=== PATIENT | female | born 1940 | race African-American/Black ===

== ENCOUNTER 2019-12-08 16:32 | Inpatient (IN) | payer MEDICARE, MEDICAID ==
[~2019-12-08] VITALS: Ht 167.6 cm; Wt 51.7 kg
[~2019-12-08 16:32] MED LIST: BRIM15DR2 EACHEYE; CELE400C PO; ERGO400C PO; PROAIR INHALER IH; SIMV-43 PO; TRAV2.5D EACHEYE
[2019-12-08 22:03] LABS: HEMATOCRIT. 45.6 % (36.0-48.0); HEMOGLOBIN. 15.2 g/dL (12.0-16.0); MEAN CORPUSCULAR HEMOGLOBIN 30.7 pg (28.0-32.0); MEAN CORPUSCULAR VOLUME 91.9 fL (81.0-99.0); MEAN PLATELET VOLUME 9.7 fl (7.4-10.4); PLATELET 206 x1000/uL (130-400); RED BLOOD CELL COUNT 4.96 mill/uL (4.2-5.4); RED CELL DISTRIBUTION WIDTH 13.5 % (11.6-14.6)
[2019-12-08 22:10] LABS: CHLORIDE 95 mEq/L (98-107)
[2019-12-08 22:53] LABS: CLARITY URINE CLEAR (CLEAR); COLOR URINE DARK YELLOW (YELLOW); KETONES URINE TRACE (NEGATIVE); LEUKOCYTE ESTERASE URINE TRACE (NEGATIVE); NITRITE URINE NEGATIVE (NEGATIVE); OCCULT BLOOD URINE NEGATIVE (NEGATIVE); PROTEIN URINE 1+ (NEGATIVE); SPECIFIC GRAVITY URINE 1.026 (1.005-1.030)
[2019-12-08 22:59] LABS: PLATELET ESTIMATE NORMAL
[2019-12-08] MEDS ORDERED: SODIUM CHLORIDE 0.9% 1,000 ML IV ONE (23:15)
[2019-12-08] MEDS ORDERED: CEFTRIAXONE 1 G PREMIX 50 ML IV ONE (23:15)
[2019-12-09 05:23] LABS: HEMATOCRIT. 42.8 % (36.0-48.0); HEMOGLOBIN. 14.5 g/dL (12.0-16.0); MEAN CORPUSCULAR HEMOGLOBIN 31.3 pg (28.0-32.0); MEAN PLATELET VOLUME 9.7 fl (7.4-10.4); PLATELET 167 x1000/uL (130-400); RED BLOOD CELL COUNT 4.65 mill/uL (4.2-5.4); RED CELL DISTRIBUTION WIDTH 13.2 % (11.6-14.6)
[2019-12-09 05:26] LABS: CHLORIDE 102 mEq/L (98-107)
[2019-12-09 07:08] LABS: PLATELET ESTIMATE NORMAL
[2019-12-09 08:53] LABS: T4 FREE 1.18 ng/dL (0.76-1.46)
[2019-12-09 11:14] VITALS: BP 110/63
[2019-12-09 12:00] VITALS: BP 135/82
[2019-12-09] MEDS ORDERED: CEFTRIAXONE 1 G PREMIX 50 ML IV SCH (14:00)
[2019-12-09] MEDS ORDERED: ONDANSETRON HCL 4MG/2ML INJ IV PRN (14:00)
[2019-12-09 16:00] VITALS: BP 105/60
[2019-12-09] MEDS: ACETAMINOPHEN 325MG TABLET PO PRN (18:13)
[2019-12-09] MEDS: AZITHROMYCIN 500MG in DEXTROSE 5% WATER 250ML IV SCH (18:32)
[2019-12-09] MEDS ORDERED: P-EP-312 PO (18:58)
[2019-12-09 20:00] VITALS: BP 96/46
[2019-12-09] MEDS: ATORVASTATIN CALCIUM 20MG TABLET PO SCH (21:29)
[2019-12-09] MEDS: CEFTRIAXONE 1 G PREMIX 50 ML IV SCH (21:29)
[2019-12-09] MEDS: DOCUSATE SODIUM 250MG CAPSULE PO SCH (21:29)
[2019-12-10] VITALS: BP 106/70
[2019-12-10] MEDS: IPRATROPIUM/ALBUTEROL 0.5-3(2.5)MG/3ML NEB HHN SCH ×6 (01:14→21:20)
[2019-12-10 04:00] VITALS: BP 122/82
[2019-12-10] MEDS: ACETAMINOPHEN 325MG TABLET PO PRN (06:39)
[2019-12-10] MEDS: LEVOTHYROXINE SODIUM 75MCG TABLET PO SCH (06:39)
[2019-12-10 07:16] LABS: HEMATOCRIT. 39.3 % (36.0-48.0); HEMOGLOBIN. 13.2 g/dL (12.0-16.0); MEAN CORPUSCULAR HEMOGLOBIN 30.8 pg (28.0-32.0); MEAN CORPUSCULAR VOLUME 91.8 fL (81.0-99.0); PLATELET 169 x1000/uL (130-400); RED BLOOD CELL COUNT 4.28 mill/uL (4.2-5.4)
[2019-12-10 07:27] LABS: BETA HYDROXYBUTYRATE < 0.1 mMol/L (0.0-0.3)
[2019-12-10 08:00] VITALS: BP 84/50
[2019-12-10] MEDS: PANTOPRAZOLE SODIUM 40 MG/VIAL IV SCH (08:38)
[2019-12-10] MEDS ORDERED: LEVOFLOXACIN 500MG TABLET PO SCH (11:00)
[2019-12-10 12:00] VITALS: BP 100/67
[2019-12-10] MEDS: AZITHROMYCIN 500MG in DEXTROSE 5% WATER 250ML IV SCH (15:48)
[2019-12-10 16:00] VITALS: BP 97/70
[2019-12-10 20:00] VITALS: BP 113/77
[2019-12-10] MEDS: CEFTRIAXONE 1 G PREMIX 50 ML IV SCH (20:53)
[2019-12-10] MEDS: ATORVASTATIN CALCIUM 20MG TABLET PO SCH (20:53)
[2019-12-10] MEDS: DOCUSATE SODIUM 250MG CAPSULE PO SCH (20:53)
[2019-12-10 22:35] LABS: PLATELET ESTIMATE NORMAL
[2019-12-11] VITALS: BP 119/79
[2019-12-11] MEDS: ACETAMINOPHEN 325MG TABLET PO PRN (01:09)
[2019-12-11] MEDS: IPRATROPIUM/ALBUTEROL 0.5-3(2.5)MG/3ML NEB HHN SCH ×6 (01:26→16:00)
[2019-12-11 04:00] VITALS: BP 102/66
[2019-12-11] MEDS: LEVOTHYROXINE SODIUM 75MCG TABLET PO SCH (06:21)
[2019-12-11 06:42] LABS: BASOPHILS % 0.7 % (0.0-2.0); EOSINOPHILS % 3.5 % (0.0-5.0); HEMATOCRIT. 38.4 % (36.0-48.0); LYMPHOCYTES % 8.3 % (20.0-50.0); MEAN CORPUSCULAR HEMOGLOBIN 30.7 pg (28.0-32.0); MEAN CORPUSCULAR VOLUME 90.7 fL (81.0-99.0); MEAN PLATELET VOLUME 9.8 fl (7.4-10.4); MONOCYTES % 12.4 % (2.0-8.0); NEUTROPHILS % 75.1 % (40.0-76.0); PLATELET 183 x1000/uL (130-400); RED BLOOD CELL COUNT 4.23 mill/uL (4.2-5.4)
[2019-12-11 06:47] LABS: CHLORIDE 103 mEq/L (98-107)
[2019-12-11 08:00] VITALS: BP 101/74
[2019-12-11] MEDS: PANTOPRAZOLE SODIUM 40 MG/VIAL IV SCH (08:09)
[2019-12-11 12:00] VITALS: BP 110/84
[2019-12-11] MEDS: PROMETHAZINE/DEXTROMETHORPHAN 6.25-15MG/5ML BOTTLE 120ML PO PRN ×2 (13:47→20:33)
[2019-12-11] MEDS: BRIMONIDINE 0.2% OPHTH DROPS 5ML BOTHEYE SCH ×2 (13:48→20:09)
[2019-12-11 16:00] VITALS: BP 91/58
[2019-12-11] MEDS: AZITHROMYCIN 500MG in DEXTROSE 5% WATER 250ML IV SCH (16:22)
[2019-12-11] MEDS ORDERED: LATANOPROST 0.005% OPHTH DROPS 2.5ML EACHEYE SCH (17:00)
[2019-12-11] MEDS ORDERED: NON FORMULARY PATIENT HOME MED OP SCH (17:00)
[2019-12-11 20:00] VITALS: BP_SYST 112; BP_SYST 115; BP_DIAS 63; BP_DIAS 74
[2019-12-11] MEDS: CEFTRIAXONE 1 G PREMIX 50 ML IV SCH (20:07)
[2019-12-11] MEDS: ATORVASTATIN CALCIUM 20MG TABLET PO SCH (20:07)
[2019-12-11] MEDS: DOCUSATE SODIUM 250MG CAPSULE PO SCH (20:07)
[2019-12-12] VITALS: BP 109/71
[2019-12-12 04:00] VITALS: BP 121/79
[2019-12-12] MEDS: PROMETHAZINE/DEXTROMETHORPHAN 6.25-15MG/5ML BOTTLE 120ML PO PRN ×2 (04:09→12:25)
[2019-12-12] MEDS: BRIMONIDINE 0.2% OPHTH DROPS 5ML BOTHEYE SCH ×2 (05:35→13:24)
[2019-12-12] MEDS: LEVOTHYROXINE SODIUM 75MCG TABLET PO SCH (06:37)
[2019-12-12 07:27] LABS: HEMATOCRIT. 40.7 % (36.0-48.0); HEMOGLOBIN. 13.7 g/dL (12.0-16.0); MEAN CORPUSCULAR HEMOGLOBIN 30.8 pg (28.0-32.0); MEAN CORPUSCULAR VOLUME 91.6 fL (81.0-99.0); MEAN PLATELET VOLUME 9.8 fl (7.4-10.4); PLATELET 218 x1000/uL (130-400); RED BLOOD CELL COUNT 4.45 mill/uL (4.2-5.4); RED CELL DISTRIBUTION WIDTH 13.4 % (11.6-14.6)
[2019-12-12 08:00] VITALS: BP 106/66
[2019-12-12 08:35] LABS: CHLORIDE 103 mEq/L (98-107)
[2019-12-12] MEDS ORDERED: AZITHROMYCIN 500 MG TABLET PO SCH (09:00)
[2019-12-12] MEDS ORDERED: FAMOTIDINE 20MG TABLET PO SCH (09:00)
[2019-12-12 11:10] VITALS: BP 106/66
[2019-12-12 11:47] LABS: PLATELET ESTIMATE NORMAL
[2019-12-12 12:14] VITALS: BP 108/58
[2019-12-12] MEDS: IPRATROPIUM/ALBUTEROL 0.5-3(2.5)MG/3ML NEB HHN SCH (14:20)
== END 2019-12-12 15:20 | disposition home or self-care (01) | DRG 871 ==
LOC: ER 16:32 → 6EST 23:20 → ENRESERV 12-09 09:48 → 6EST 12-09 17:03
PROVIDERS: ADMIT Internal Medicine; ATTEND Internal Medicine
DX: A41.9 Sepsis, unspecified organism (principal); J96.20 Acute and chronic respiratory failure, unspecified whether with hypoxia or hypercapnia; J44.1 Chronic obstructive pulmonary disease with (acute) exacerbation; E44.1 Mild protein-calorie malnutrition; E87.1 Hypo-osmolality and hyponatremia; Z68.1 Body mass index [BMI] 19.9 or less, adult; N39.0 Urinary tract infection, site not specified; I12.9 Hypertensive chronic kidney disease with stage 1 through stage 4 chronic kidney disease, or unspecified chronic kidney disease; E03.9 Hypothyroidism, unspecified; E87.5 Hyperkalemia; R74.0 Nonspecific elevation of levels of transaminase and lactic acid dehydrogenase [LDH]; N18.1 Chronic kidney disease, stage 1; F32.9 Major depressive disorder, single episode, unspecified; M17.0 Bilateral primary osteoarthritis of knee; F41.9 Anxiety disorder, unspecified; M51.36 Other intervertebral disc degeneration, lumbar region; I48.91 Unspecified atrial fibrillation; Z87.01 Personal history of pneumonia (recurrent); Z88.1 Allergy status to other antibiotic agents; Z90.49 Acquired absence of other specified parts of digestive tract; Z98.891 History of uterine scar from previous surgery
CPT/HCPCS: 36415; 71045; 72110; 73560; 80048; 80053; 80076; 81003; 82010; 84439; 84443; 85025; 93005; 94640; 96365; 99285; C9113; J0456; J0696; J7030; J7060